=== PATIENT | male | born 1950 | race Caucasian/White ===

== ENCOUNTER → 2023-04-15 11:24 | Outpatient (BNVA) | payer MEDICARE, OTHER, SELFPAY | PROVIDERS: PCP Internal Medicine Infectious Disease; Referring Provider Internal Medicine Infectious Disease; Visit Provider Specialist | DX: G62.89 Other specified polyneuropathies (principal); H90.5 Unspecified sensorineural hearing loss; R42 Dizziness and giddiness; F32.A Depression, unspecified; R53.83 Other fatigue; Z85.72 Personal history of non-Hodgkin lymphomas; Z85.828 Personal history of other malignant neoplasm of skin; Z92.21 Personal history of antineoplastic chemotherapy; Z92.3 Personal history of irradiation | CPT/HCPCS: 36415; 82607; 82746; 83516; 85651; 99205 ==